=== PATIENT | male | born 1950 | race Caucasian/White ===

== ENCOUNTER 2023-10-29 05:08 | Emergency (ER) | payer OTHER ==
[2023-10-29 05:16] VITALS: RESP 18; BMI 25.0
[2023-10-29] MEDS ORDERED: DIPHTH,PERTUSS(ACELL),TET 0.5 ML DISP.SYRIN IM ONE ×2 (06:34→07:29)
[2023-10-29 06:36] VITALS: BP 120/62; TEMP 97.6
[2023-10-29 08:15] LABS: HEMATOCRIT 45.9 % (35.4-49); HEMOGLOBIN 14.5 G/dL (11.7-16.9); MCH 26.6 pg (25.7-33.7); MCHC 31.6 g/dl (32.0-35.9); MEAN CELL VOLUME 84.3 fl (80-96); PLATELET COUNT 267.6 10^3/uL (134-434); RBC 5.45 10^6/uL (4.00-5.60); RDW 16.6 % (11.9-15.9); WHITE BLOOD COUNT 9.8 10^3/uL (4.0-10.8)
[2023-10-29 08:51] LABS: EPITHELIAL CELLS 0-5 /hpf
[2023-10-29 08:58] LABS: ALBUMIN 4.3 g/dl (3.4-5.0); BILIRUBIN,TOTAL 0.6 mg/dl (0.2-1); CALCIUM 9.6 mg/dl (8.5-10.1); CREATININE 0.8 mg/dl (0.6-1.3); POTASSIUM 4.1 mmol/L (3.5-5.1); TOT PROT 6.6 g/dl (6.4-8.2)
[2023-10-29 10:06] LABS: VENOUS BASE EXCESS 4.3 mmol/L (-2-2); VENOUS PCO2 57.3 mmHg (38-52); VENOUS PH 7.358 (7.310-7.410)
[2023-10-29 11:16] VITALS: PULSE 74
== END 2023-10-29 11:36 | disposition home or self-care (01) ==
LOC: FER 05:08
PROC: 3E0234Z Introduction of Serum, Toxoid and Vaccine into Muscle, Percutaneous Approach (ICD-10-PCS; principal; 2023-10-29)
DX: S80.211A Abrasion, right knee, initial encounter (principal); S80.212A Abrasion, left knee, initial encounter; R09.02 Hypoxemia; R06.82 Tachypnea, not elsewhere classified; F03.90 Unspecified dementia, unspecified severity, without behavioral disturbance, psychotic disturbance, mood disturbance, and anxiety; W19.XXXA Unspecified fall, initial encounter; Z20.822 Contact with and (suspected) exposure to COVID-19
CPT/HCPCS: 0241U-QW; 36415; 70450-TC; 71045-TC-FY; 80053; 81003; 81015; 82803; 83605; 83735; 84100; 85027; 87040; 87086; 90471; 90715; 99285-25